=== PATIENT | female | born 1955 | race Caucasian/White ===

== ENCOUNTER 2018-04-27 16:55 | Inpatient (IN) | payer OTHER ==
--- NOTE | 2018-04-27 17:21 | PDOC ---
Rapid Medical Evaluation Time Seen by Provider: 04/27/18 17:19 Medical Evaluation: Allergies Allergy/AdvReac Type Severity Reaction Status Date / Time Penicillins Allergy Verified 10/12/14 11:33 04/27/18 17:21 62 year old female with asthma, hypertension, NIDDM, gastritis, hypercholesterolemia, and septic arthritis x 2 with 4 days of non-traumatic right knee swelling and pain with chills and low-grade fevers. Right knee edematous, tender, mildly erythematous with limited ROM. Plan: -Sepsis labs and cultures -To Main ED for further evaluation Discharge Disposition - Diagnosis Knee pain, right Qualifiers: Chronicity: acute Qualified Code(s): M25.561 - Pain in right knee Fever Qualifiers: Fever type: unspecified Qualified Code(s): R50.9 - Fever, unspecified - Referrals - Patient Instructions - Post Discharge Activity
[2018-04-27] MEDS ORDERED: LIDOCAINE HCL 1%, 10 MG/ML (50 mL VIAL) SQ ONE (18:25)
--- NOTE | 2018-04-27 18:25 | PDOC ---
History of Present Illness - General Chief Complaint: Edema Stated Complaint: RT KNEE SWELLING Time Seen by Provider: 04/27/18 17:19 History Source: Patient, Care Provider Exam Limitations: No Limitations - History of Present Illness Initial Comments: This is a 62 YOF with h/o NIDDM and reported prior diagnosis of septic arthritis of the right knee (twice previously), who p/w right medial knee pain, swelling, warmth, and redness for the past 2-3 days associated with subjective fever and chills. Provider Gonsalo from her PCP's office instructed her to come into the ED and called ahead to provide information. The patient denies any lesions or injuries to the right knee or leg, and denies overusing the knee lately. She additionally denies any known exposure to new soaps, detergents, lotions, etc. She has been able to walk on the leg and is able to bend it partially at the knee, but both actions cause her pain to worsen to a maximum 10 /10. She denies streaking erythema, drainage, foot swelling, grinding/crunching sensation of the joint, chest pain, palpitations, shortness of breath, or other symptoms. Past History - Past Medical History Allergies/Adverse Reactions: Allergies Allergy/AdvReac Type Severity Reaction Status Date / Time Penicillins Allergy Verified 04/27/18 17:22 Home Medications: Ambulatory Orders Zolpidem Tartrate [Ambien] 10 mg PO HS PRN #0 tablet 04/02/13 Amlodipine Besylate [Norvasc -] 10 mg PO DAILY 04/19/14 Losartan Potassium 25 mg PO DAILY 04/19/14 Asthma: Yes COPD: No Diabetes: Yes GI Disorders: Yes (ULCER) HTN: Yes Hypercholesterolemia: Yes - Surgical History Appendectomy: Yes - Immunization History Immunization Up to Date: Yes - Suicide/Smoking/Psychosocial Hx Smoking Status: No Smoking History: Never smoked Have you smoked in the past 12 months: No Number of Cigarettes Smoked Daily: 0 Hx Alcohol Use: No Drug/Substance Use Hx: Yes Substance Use Type: Alcohol Hx Substance Use Treatment: No Review of Systems - Review of Systems Able to Perform ROS?: Yes Constitutional: Yes: Chills, Fever (subjective). No: Unexplained wgt Loss HEENTM: No: Nose Congestion, Throat Pain Respiratory: No: Cough, Shortness of Breath Cardiac (ROS): No: Chest Pain, Palpitations ABD/GI: No: Constipated, Diarrhea, Nausea, Vomiting : No: Burning, Dysuria Musculoskeletal: Yes: Joint Pain, Joint Swelling. No: Back Pain, Neck Pain Integumentary: Yes: Erythema. No: Bruising Neurological: No: Headache, Numbness, Tingling, Weakness, Dizziness Endocrine: No: Unexplained Weight Gain, Unexplained Weight Loss *Physical Exam - Vital Signs Last Vital Signs Temp Pulse Resp BP Pulse Ox 98 F 80 19 150/85 96 04/27/18 17:22 04/27/18 17:22 04/27/18 17:22 04/27/18 17:22 04/27/18 17:22 - Physical Exam General Appearance: Yes: Nourished, Appropriately Dressed, Other (nontoxic and well appearing female who is Jamaican speaking, accompanied by her daughter, answering questions appropriately, appears comfortable at rest, sitting in Vertical reclining chair with legs elevated). No: Apparent Distress HEENT: positive: EOMI, BELL, Normal Voice, Hearing Grossly Normal. negative: Scleral Icterus (R), Scleral Icterus (L), Nasal Congestion Neck: positive: Trachea midline, Supple. negative: Tender, Rigid Respiratory/Chest: positive: Lungs Clear, Normal Breath Sounds. negative: Respiratory Distress, Crackles, Rhonchi, Stridor, Wheezing Cardiovascular: positive: Regular Rhythm, Regular Rate. negative: Murmur Gastrointestinal/Abdominal: positive: Normal Bowel Sounds, Soft. negative: Tender, Organomegaly, Pulsatile Mass, Guarding Musculoskeletal: positive: Normal Inspection. negative: Decreased Range of Motion, Vertebral Tenderness Extremity: positive: Normal Capillary Refill, Other (right medial knee soft tissue swelling, erythema, warmth, tenderness, small knee effusion, patient able to passively range right knee in flexion to about 75 degrees with pain, able to fully extend). negative: Cyanosis Integumentary: positive: Dry, Warm, Erythema. 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 Initial Vital Signs Temp Pulse Resp BP Pulse Ox 98 F 80 19 150/85 96 04/27/18 17:22 04/27/18 17:22 04/27/18 17:22 04/27/18 17:22 04/27/18 17:22 Exam: right medial knee soft tissue swelling, erythema, warmth, tenderness, small knee effusion. DDX IBNLT: effusion (e.g. 2/2 osteoarthritis, overuse), gout, pseudogout, prepatellar bursitis, septic arthritis, hemarthrosis, edema (e.g. from CHF exacerbation or PVD), gonorrhea, necrotizing soft tissue infection, DVT, superficial venous thrombosis, popliteal cyst (wwo rupture), etc. W/U ordered: CBCD CMP Coags Lactate BCx ESR CRP XR knee to r/o gas/effusion CXR EKG TX ordered: Vancomycin, IVF Spoke with Dr. Rothman prior to any results completing. Patient's care endorsed to Drs. Casey and Gianna at the end of my shift. *DC/Admit/Observation/Transfer Diagnosis at time of Disposition: Knee pain, right Qualifiers: Chronicity: acute Qualified Code(s): M25.561 - Pain in right knee Fever Qualifiers: Fever type: unspecified Qualified Code(s): R50.9 - Fever, unspecified - Referrals - Patient Instructions - Post Discharge Activity
[2018-04-27] MEDS ORDERED: LIDOCAINE HCL 1%, 10 MG/ML (20ML VIAL) ONE (18:28)
[2018-04-27] MEDS ORDERED: VANCOMYCIN 1,500 MG in DEXTROSE 5%-WATER - 250 ML IVPB ONE (19:02)
--- NOTE | 2018-04-27 19:07 | PDOC ---
Attending Attestation - HPI HPI: 04/27/18 19:08 The patient is a 62 year old female, with a significant past medical history of asthma, hypertension, NIDDM, gastritis, hypercholesterolemia, and septic arthritis x 2, who presents to the emergency department with non-traumatic right knee swelling, redness, and pain for approximately 4 days. The patient reports 4 days of worsening right knee swelling and warmth. She denies any trauma to skin around the knee or any surgeries to the area. She reports subjective fever and chills, but denies any headache, dizziness, or lightheadedness. She denies any chest pain, shortness of breath, diaphoresis, or palpitations. She denies any abdominal pain, nausea, or vomiting. She denies any recent travel or sick contacts. Allergies: Penicillins Past Surgical History: Appendectomy Social History: Non smoker. No ETOH or recreational drug use. - Physicial Exam PE: 04/27/18 19:09 GENERAL: Awake, alert, and fully oriented, in no acute distress HEAD: No signs of trauma EYES: PERRLA, EOMI, sclera anicteric, conjunctiva clear ENT: Auricles normal inspection, hearing grossly normal, nares patent. Moist mucosa NECK: Normal ROM, supple, no lymphadenopathy, JVD, or masses LUNGS: Breath sounds equal, clear to auscultation bilaterally. No wheezes, and no crackles HEART: Regular rate and rhythm, normal S1 and S2, no murmurs, rubs or gallops ABDOMEN: Soft, nontender, normoactive bowel sounds. No guarding, no rebound. No masses EXTREMITIES: Right medial knee with skin swelling, warmth, erythema; able to flex/ extend the knee to 90 degress; no laxity. Erythema localized to medial knee. Normal range of motion at remainder of extremities. No clubbing or cyanosis. No cords. DP/PT pulses 2+ and symmetric. Warm and well perfused. NEUROLOGICAL: Moves all extremities. Normal speech, normal gait SKIN: Warm, Dry, normal turgor, no rashes or lesions noted. - Medical Decision Making 04/27/18 19:10 Documentation prepared by Santino Pabon, acting as resident medical officer for Mary Menard MD. <Santino Pabon - Last Filed: 04/27/18 19:09> - Resident Resident Name: Mary Moody - ED Attending Attestation I have performed the following: I have examined & evaluated the patient, The case was reviewed & discussed with the resident, I agree w/resident's findings & plan, Exceptions are as noted - Physicial Exam PE: 04/27/18 19:03 awake alert lungs clear bilaterally heart rrr nomrg. abd soft nt nd. ext wwp. right knee with medial skin swelling, warmth, erythema. able to flex/ ext knee to 90. no laxity.. erythema localezed to medial knee. hip ankle soft nt nd. nuero awake alert oriented x 3. - Medical Decision Making 04/27/18 19:04 62 yo F with h/o DM prior septic arthritis here with right knee pain. swelling. differential septic arthritis vs. cellulitis/ bursitis. plan labs cbc lytes cultures, esr and crp. focused ED us performed right knee, overlying celllulitis changes medial knee with cobblestoning present. no visible fluid collection. right lateral knee exam witn very small effusion. impression: knee cellulitis, small joint effusion. decision not to perform arthrocentesis due to overlying cellulitis, concerns for introduction of infection into joint. plan iv abx, will consult orthopedics. <Mary Menard - Last Filed: 04/28/18 12:51>
[2018-04-27 19:28] LABS: BASO % 0.3 % (0-2.0); EOS % 3.8 % (0-4.5); HEMATOCRIT 36.5 % (32.4-45.2); HEMOGLOBIN 12.3 GM/dL (10.7-15.3); LYMPH % 36.8 % (8-40); MCH 29.7 pg (25.7-33.7); MCHC 33.7 g/dl (32.0-36.0); MEAN CELL VOLUME 87.9 fl (80-96); MEAN PLT VOLUME 8.5 fl (7.5-11.1); MONO % 7.7 % (3.8-10.2); NEUT % 51.4 % (42.8-82.8); PLATELET COUNT 312 K/MM3 (134-434); RBC 4.15 M/mm3 (3.60-5.2); RDW 13.2 % (11.6-15.6); WHITE BLOOD COUNT 6.4 K/mm3 (4.0-10.0)
[2018-04-27 19:39] LABS: URINE APPEARANCE CLEAR; URINE BILIRUBIN NEGATIVE (<2.0 mg/dL); URINE COLOR YELLOW; URINE GLUCOSE (UA) NEGATIVE (NEGATIVE); URINE KETONE NEGATIVE (NEGATIVE); URINE LEUK ESTERASE TRACE (NEGATIVE); URINE NITRITE NEGATIVE (NEGATIVE); URINE PROTEIN NEGATIVE (NEGATIVE); URINE UROBILINOGEN NEGATIVE mg/dL (0.2-1.0)
[2018-04-27] MEDS ORDERED: VANCOMYCIN 1,500 MG in DEXTROSE 5%-WATER - 500 ML IVPB ONE (19:46)
[2018-04-27 19:47] LABS: PROTHROMBIN TIME (PATIENT) 11.3 SEC (9.7-13.0)
[2018-04-27 19:50] LABS: ACTIVATED PTT 27.2 SECONDS (25.2-36.5)
[2018-04-27 19:58] LABS: EPI CELLS RARE /HPF (FEW); URINE MUCUS RARE
[2018-04-27 20:18] LABS: ALBUMIN 3.4 g/dl (3.4-5.0); ANION GAP 6 (8-16); BILIRUBIN,TOTAL 0.4 mg/dL (0.2-1.0); BLOOD UREA NITROGEN 14 mg/dL (7-18); CALCIUM 9.1 mg/dL (8.5-10.1); CHLORIDE 104 mmol/L (98-107); CO2 30 mmol/L (21-32); GLUCOSE,RANDOM 141 mg/dL (74-106); POTASSIUM 3.9 mmol/L (3.5-5.1); SODIUM 140 mmol/L (136-145); TOT PROT 6.7 g/dl (6.4-8.2)
[2018-04-27 21:06] LABS: ALK PHOS 100 U/L (45-117); SGOT/AST 21 U/L (15-37); SGPT/ALT 30 U/L (12-78)
--- NOTE | 2018-04-27 21:36 | PDOC ---
*Physical Exam - Vital Signs Last Vital Signs Temp Pulse Resp BP Pulse Ox 98 F 80 19 150/85 96 04/27/18 17:22 04/27/18 17:22 04/27/18 17:22 04/27/18 17:22 04/27/18 17:22 ED Treatment Course - LABORATORY CBC & Chemistry Diagram: 04/27/18 19:13 04/27/18 19:13 - ADDITIONAL ORDERS Additional order review: Laboratory Results 04/27/18 04/27/18 04/27/18 19:13 19:13 19:13 PT with INR INR PTT (Actin FS) Sodium 140 Potassium 3.9 Chloride 104 Carbon Dioxide 30 Anion Gap 6 L BUN 14 Creatinine 1.0 Creat Clearance w eGFR 55.82 Random Glucose 141 H Lactic Acid 1.2 Calcium 9.1 Total Bilirubin 0.4 D AST 21 ALT 30 Alkaline Phosphatase 100 C-Reactive Protein Total Protein 6.7 Albumin 3.4 Urine Color Yellow Urine Appearance Clear Urine pH 6.0 Ur Specific [place] 1.027 Urine Protein Negative Urine Glucose (UA) Negative Urine Ketones Negative Urine Blood Negative Urine Nitrite Negative Urine Bilirubin Negative Urine Urobilinogen Negative Ur Leukocyte Esterase Trace Urine WBC (Auto) 4 Urine RBC (Auto) 1 Ur Epithelial Cells Rare Urine Mucus Rare 04/27/18 04/27/18 19:13 19:08 PT with INR 11.30 INR 1.00 PTT (Actin FS) 27.2 Sodium Potassium Chloride Carbon Dioxide Anion Gap BUN Creatinine Creat Clearance w eGFR Random Glucose Lactic Acid Calcium Total Bilirubin AST ALT Alkaline Phosphatase C-Reactive Protein 3.0 H Total Protein Albumin Urine Color Urine Appearance Urine pH Ur Specific [place] Urine Protein Urine Glucose (UA) Urine Ketones Urine Blood Urine Nitrite Urine Bilirubin Urine Urobilinogen Ur Leukocyte Esterase Urine WBC (Auto) Urine RBC (Auto) Ur Epithelial Cells Urine Mucus 04/27/18 19:13 RBC 4.15 MCV 87.9 MCHC 33.7 RDW 13.2 MPV 8.5 Neutrophils % 51.4 Lymphocytes % 36.8 Monocytes % 7.7 Eosinophils % 3.8 Basophils % 0.3 - Medications Given in the ED: ED Medications Discontinued Medications Generic Name Dose Route Start Last Admin Trade Name Freq PRN Reason Stop Dose Admin Vancomycin HCl 1,500 mg/ 500 mls @ 250 mls/hr 04/27/18 19:46 04/27/18 21:08 Dextrose IVPB 04/27/18 21:01 250 mls/hr ONCE ONE Administration Protocol Lidocaine HCl 5 ml 04/27/18 18:25 04/27/18 21:18 Xylocaine 1% SQ 04/27/18 18:26 Not Given ONCE ONE Medical Decision Making - Medical Decision Making Patient signed out to me pending labs for likely septic right knee joint. Vancomycin was given prior to my arrival so arthrocentesis was deferred for ortho given high risk in the setting of two previous septic joints. Patient signed out to Venkatesh and consults placed for Di. 04/27/18 21:27 *DC/Admit/Observation/Transfer Diagnosis at time of Disposition: Knee pain, right Qualifiers: Chronicity: acute Qualified Code(s): M25.561 - Pain in right knee Fever Qualifiers: Fever type: unspecified Qualified Code(s): R50.9 - Fever, unspecified - Referrals - Patient Instructions - Post Discharge Activity
--- NOTE | 2018-04-27 21:59 | HP ---
Admitting History and Physical - Primary Care Physician PCP: Lois Riddle - Admission History of Present Illness: 62 YOF with h/o NIDDM and reported prior diagnosis of septic arthritis of the right knee (twice previously), who p/w right medial knee pain, swelling, warmth , and redness for the past 2-3 days associated with subjective fever and chills. Provider Gonsalo from her PCP's office instructed her to come into the ED and called ahead to provide information. The patient denies any lesions or injuries to the right knee or leg, and denies overusing the knee lately. She additionally denies any known exposure to new soaps, detergents, lotions, etc. She has been able to walk on the leg and is able to bend it partially at the knee, but both actions cause her pain to worsen to a maximum 10/10. She denies streaking erythema, drainage, foot swelling, grinding/crunching sensation of the joint, chest pain, palpitations, shortness of breath, or other symptoms. - Past Medical History Cardiovascular: Yes: HTN Endocrine: Yes: Diabetes Mellitus - Smoking History Smoking history: Never smoked Have you smoked in the past 12 months: No Aproximately how many cigarettes per day: 0 - Alcohol/Substance Use Hx Alcohol Use: No Home Medications - Allergies Allergies/Adverse Reactions: Allergies Allergy/AdvReac Type Severity Reaction Status Date / Time Penicillins Allergy Verified 04/27/18 17:22 - Home Medications Home Medications: Ambulatory Orders Zolpidem Tartrate [Ambien] 10 mg PO HS PRN #0 tablet 04/02/13 Amlodipine Besylate [Norvasc -] 10 mg PO DAILY 04/19/14 Losartan Potassium 25 mg PO DAILY 04/19/14 Physical Examination Vital Signs: Vital Signs Temperature 98 F 04/27/18 17:22 Pulse Rate 80 04/27/18 17:22 Respiratory Rate 19 04/27/18 17:22 Blood Pressure 150/85 04/27/18 17:22 O2 Sat by Pulse Oximetry (%) 96 04/27/18 17:22 Constitutional: Yes: No Distress HENT: Yes: Atraumatic Neck: Yes: Supple Cardiovascular: Yes: Regular Rate and Rhythm Respiratory: Yes: CTA Bilaterally Gastrointestinal: Yes: Normal Bowel Sounds Extremities: Yes: Other (R knee red warm and swollen) Peripheral Pulses WNL: Yes Neurological: Yes: Alert, Oriented Labs: CBC, BMP 04/27/18 19:13 04/27/18 19:13 Problem List - Problems (1) Right knee skin infection Assessment/Plan: iv abx id and ortho consult prn pain meds Code(s): L08.9 - LOCAL INFECTION OF THE SKIN AND SUBCUTANEOUS TISSUE, UNSP (2) HTN (hypertension) Assessment/Plan: onmeds stable Code(s): I10 - ESSENTIAL (PRIMARY) HYPERTENSION (3) Diabetes Assessment/Plan: not on any meds Code(s): E11.9 - TYPE 2 DIABETES MELLITUS WITHOUT COMPLICATIONS Assessment/Plan Laboratory Tests 04/27/18 04/27/18 04/27/18 19:08 19:13 19:13 WBC 6.4 RBC 4.15 Hgb 12.3 Hct 36.5 MCV 87.9 MCH 29.7 MCHC 33.7 RDW 13.2 Plt Count 312 D MPV 8.5 Absolute Neuts (auto) 3.3 Neutrophils % 51.4 Lymphocytes % 36.8 Monocytes % 7.7 Eosinophils % 3.8 Basophils % 0.3 Nucleated RBC % 0 PT with INR 11.30 INR 1.00 PTT (Actin FS) 27.2 Sodium Potassium Chloride Carbon Dioxide Anion Gap BUN Creatinine Creat Clearance w eGFR Random Glucose Lactic Acid Calcium Total Bilirubin AST ALT Alkaline Phosphatase C-Reactive Protein 3.0 H Total Protein Albumin Urine Color Urine Appearance Urine pH Ur Specific [place] Urine Protein Urine Glucose (UA) Urine Ketones Urine Blood Urine Nitrite Urine Bilirubin Urine Urobilinogen Ur Leukocyte Esterase Urine WBC (Auto) Urine RBC (Auto) Ur Epithelial Cells Urine Mucus 04/27/18 04/27/18 04/27/18 19:13 19:13 19:13 WBC RBC Hgb Hct MCV MCH MCHC RDW Plt Count MPV Absolute Neuts (auto) Neutrophils % Lymphocytes % Monocytes % Eosinophils % Basophils % Nucleated RBC % PT with INR INR PTT (Actin FS) Sodium 140 Potassium 3.9 Chloride 104 Carbon Dioxide 30 Anion Gap 6 L BUN 14 Creatinine 1.0 Creat Clearance w eGFR 55.82 Random Glucose 141 H Lactic Acid 1.2 Calcium 9.1 Total Bilirubin 0.4 D AST 21 ALT 30 Alkaline Phosphatase 100 C-Reactive Protein Total Protein 6.7 Albumin 3.4 Urine Color Yellow Urine Appearance Clear Urine pH 6.0 Ur Specific [place] 1.027 Urine Protein Negative Urine Glucose (UA) Negative Urine Ketones Negative Urine Blood Negative Urine Nitrite Negative Urine Bilirubin Negative Urine Urobilinogen Negative Ur Leukocyte Esterase Trace Urine WBC (Auto) 4 Urine RBC (Auto) 1 Ur Epithelial Cells Rare Urine Mucus Rare Active Medications Generic Name Dose Route Start Last Admin Trade Name Freq PRN Reason Stop Dose Admin Acetaminophen 650 mg 04/27/18 21:54 Tylenol - PO Q6H PRN FEVER Amlodipine Besylate 10 mg 04/28/18 10:00 Norvasc - PO DAILY [facility] Heparin Sodium (Porcine) 5,000 unit 04/27/18 22:00 Heparin - SQ BID [facility] Losartan Potassium 25 mg 04/28/18 10:00 Cozaar - PO DAILY [facility] Non-Formulary Medication 10 mg 04/27/18 21:54 Zolpidem Tartrate [Ambien] PO HS PRN INSOMNIA
[2018-04-27] MEDS ORDERED: HEPARIN NA (PORCINE) 5,000 UNITS/ML 1ML VIAL ONE (23:40)
[2018-04-27] MEDS: HEPARIN NA (PORCINE) 5,000 UNITS/ML 1ML VIAL SQ SCH (23:45)
[2018-04-28 01:19] VITALS: BMI 29.6
[2018-04-28] MEDS: amLODIPine BESYLATE 10 MG TABLET (FP) PO SCH (09:47)
[2018-04-28] MEDS: HEPARIN NA (PORCINE) 5,000 UNITS/ML 1ML VIAL SQ SCH ×2 (09:47→21:00)
[2018-04-28] MEDS: LOSARTAN POTASSIUM 25 MG TABLET PO SCH (09:47)
--- NOTE | 2018-04-28 11:03 | CON.ORTH ---
Consult Reason for Consultation:: right knee pain/swelling - Past Medical History Cardio/Vascular: Yes: HTN Endocrine: Yes: Diabetes Mellitus - Alcohol/Substance Use Hx Alcohol Use: No - Smoking History Smoking history: Never smoked Have you smoked in the past 12 months: No Aproximately how many cigarettes per day: 0 Home Medications - Allergies Allergies/Adverse Reactions: Allergies Allergy/AdvReac Type Severity Reaction Status Date / Time Penicillins Allergy Verified 04/27/18 17:22 - Home Medications Home Medications: Ambulatory Orders Zolpidem Tartrate [Ambien] 10 mg PO HS PRN #0 tablet 04/02/13 Amlodipine Besylate [Norvasc -] 10 mg PO DAILY 04/19/14 Losartan Potassium 25 mg PO DAILY 04/19/14 Physical Exam for Ortho Vital Signs: Vital Signs Temperature 98.6 F 04/28/18 06:22 Pulse Rate 68 04/28/18 06:22 Respiratory Rate 20 04/28/18 06:22 Blood Pressure 112/59 04/28/18 06:22 O2 Sat by Pulse Oximetry (%) 97 04/28/18 00:57 Labs: CBC, BMP 04/27/18 19:13 04/27/18 19:13 INR, PTT INR 1.00 (0.82-1.09) 04/27/18 19:13 - Lower Extremity Knee: Yes: Right, Pain, Swelling, Tenderness, Other (Minimal erythema, + extraarticular mass/fluid on the medial aspect of the knee, + ttp, ROM 0-110, calf soft, nt, nvi) Imaging - Results X-ray: Report Reviewed, Image Reviewed Assessment/Plan 62 YOF with h/o NIDDM and reported prior diagnosis of septic arthritis of the right knee (twice previously), who p/w right medial knee pain, swelling, warmth , and redness for the past 2-3 days associated with subjective fever and chills. Provider Gonsalo from her PCP's office instructed her to come into the ED and called ahead to provide information. The patient denies any lesions or injuries to the right knee or leg, and denies overusing the knee lately. a/p- Right knee swelling/mass- no evidence of septic joint Will order MRI to evaluate mass whether its fluid/soft tissue If fluid on MRI, then can aspirate WBAT will f/u after MRI d/w Dr. Rothman
--- NOTE | 2018-04-28 14:38 | CON.ID ---
Consult Consult Specialty:: infectious diseases Reason for Consultation:: swelling and cellulitits of the rt knee joint - History of Present Illness Chief Complaint: pain and swelling in the rt knee joint History of Present Illness: 62 YOF with h/o NIDDM and reported prior diagnosis of septic arthritis of the right knee (twice previously), who p/w right medial knee pain, swelling, warmth , and redness for the past 4 days associated with subjective fever and chills. since 4 days the leg has been swelling and the patient came to the hospital because of pain.Denies any trauma .patient able to bear weight on the joint denies any other issues and otherwise comfortable - History Source History Provided By: Patient, Medical Record Limitations to Obtaining History: Language Barrier - Past Medical History Cardio/Vascular: Yes: HTN Endocrine: Yes: Diabetes Mellitus - Alcohol/Substance Use Hx Alcohol Use: No - Smoking History Smoking history: Never smoked Have you smoked in the past 12 months: No Aproximately how many cigarettes per day: 0 Home Medications - Allergies Allergies/Adverse Reactions: Allergies Allergy/AdvReac Type Severity Reaction Status Date / Time Penicillins Allergy Verified 04/27/18 17:22 - Home Medications Home Medications: Ambulatory Orders Zolpidem Tartrate [Ambien] 10 mg PO HS PRN #0 tablet 04/02/13 Amlodipine Besylate [Norvasc -] 10 mg PO DAILY 04/19/14 Losartan Potassium 25 mg PO DAILY 04/19/14 Review of Systems - Review of Systems Constitutional: reports: No Symptoms Eyes: reports: No Symptoms HENT: reports: No Symptoms Neck: reports: No Symptoms Cardiovascular: reports: No Symptoms Respiratory: reports: No Symptoms Gastrointestinal: reports: No Symptoms Genitourinary: reports: No Symptoms Musculoskeletal: reports: Joint Pain, Other Integumentary: reports: Change in Color, Erythema, Other Neurological: reports: No Symptoms Endocrine: reports: No Symptoms Hematology/Lymphatic: reports: No Symptoms Psychiatric: reports: No Symptoms Physical Exam Vital Signs: Vital Signs Temperature 98.6 F 04/28/18 13:20 Pulse Rate 61 04/28/18 13:20 Respiratory Rate 20 04/28/18 13:20 Blood Pressure 133/56 04/28/18 13:20 O2 Sat by Pulse Oximetry (%) 96 04/28/18 09:00 Constitutional: Yes: Well Nourished, Calm, Mild Distress Eyes: Yes: Conjunctiva Clear HENT: Yes: Atraumatic, Normocephalic Neck: Yes: Supple, Trachea Midline Cardiovascular: Yes: Regular Rate and Rhythm Respiratory: Yes: Regular, CTA Bilaterally Gastrointestinal: Yes: Normal Bowel Sounds, Soft Musculoskeletal: Yes: WNL Extremities: Yes: Other (rt knee joint swelling with erythema and cellulitits) Integumentary: Yes: Erythema, Other Neurological: Yes: Alert, Oriented Psychiatric: Yes: Alert, Oriented Labs: CBC, BMP 04/27/18 19:13 04/27/18 19:13 Assessment/Plan Problem List - Problems (1) Right knee skin infection Code(s): L08.9 - LOCAL INFECTION OF THE SKIN AND SUBCUTANEOUS TISSUE, UNSP (2) HTN (hypertension) Code(s): I10 - ESSENTIAL (PRIMARY) HYPERTENSION (3) Diabetes Code(s): E11.9 - TYPE 2 DIABETES MELLITUS WITHOUT COMPLICATIONS 4 rt knee swelling and cellulitits 5 r/o bursitis plan will continue abx mri of the joint elevation of the leg rest as per ortho
--- NOTE | 2018-04-28 15:05 | EKG ---
Test Reason : Blood Pressure : / mmHG Vent. Rate : 071 BPM Atrial Rate : 071 BPM P-R Int : 158 ms QRS Dur : 088 ms QT Int : 386 ms P-R-T Axes : 041 057 060 degrees QTc Int : 419 ms NORMAL SINUS RHYTHM NONSPECIFIC ST AND T WAVE ABNORMALITY ABNORMAL ECG WHEN COMPARED WITH ECG OF 12-OCT-2014 13:11, NO SIGNIFICANT CHANGE WAS FOUND Confirmed by MD Ben, Calos ([id number]) on 04/28/2018 3:04:48 PM Referred By: Confirmed By:Calos Contreras MD
--- NOTE | 2018-04-28 18:12 | PN ---
Progress Note, Physician - Current Medication List Current Medications: Active Medications Acetaminophen (Tylenol -) 650 mg PO Q6H PRN PRN Reason: FEVER Amlodipine Besylate (Norvasc -) 10 mg PO DAILY [facility] Last Admin: 04/28/18 09:47 Dose: 10 mg Heparin Sodium (Porcine) (Heparin -) 5,000 unit SQ BID [facility] Last Admin: 04/28/18 09:47 Dose: 5,000 unit Losartan Potassium (Cozaar -) 25 mg PO DAILY [facility] Last Admin: 04/28/18 09:47 Dose: 25 mg Zolpidem Tartrate (Ambien -) 10 mg PO HS PRN PRN Reason: INSOMNIA - Objective Vital Signs: Vital Signs Temperature 98 F 04/28/18 17:15 Pulse Rate 77 04/28/18 17:15 Respiratory Rate 20 04/28/18 17:15 Blood Pressure 130/65 04/28/18 17:15 O2 Sat by Pulse Oximetry (%) 96 04/28/18 09:00 Constitutional: Yes: No Distress HENT: Yes: Atraumatic Neck: Yes: Supple Cardiovascular: Yes: Regular Rate and Rhythm Respiratory: Yes: CTA Bilaterally Gastrointestinal: Yes: Normal Bowel Sounds Extremities: Yes: Other (R knee still swollen and warm) Edema: RLE: 1+ Neurological: Yes: Alert, Oriented Labs: CBC, BMP 04/27/18 19:13 04/27/18 19:13 INR, PTT INR 1.00 (0.82-1.09) 04/27/18 19:13 Problem List - Problems (1) Right knee skin infection Assessment/Plan: iv abx id and ortho consult..noted for mri prn pain meds Code(s): L08.9 - LOCAL INFECTION OF THE SKIN AND SUBCUTANEOUS TISSUE, UNSP (2) HTN (hypertension) Assessment/Plan: onmeds stable Code(s): I10 - ESSENTIAL (PRIMARY) HYPERTENSION (3) Diabetes Code(s): E11.9 - TYPE 2 DIABETES MELLITUS WITHOUT COMPLICATIONS
[2018-04-28] MEDS: VANCOMYCIN 1,250 MG in DEXTROSE 5%-WATER - 250 ML IVPB SCH (20:35)
[2018-04-28] MEDS: ZOLPIDEM TARTRATE 5 MG TABLET PO PRN (22:11)
[2018-04-28] MEDS: ACETAMINOPHEN 325 MG TABLET (FP) PO PRN (22:11)
--- NOTE | 2018-04-29 10:00 | PN ---
Progress Note (short form) - Note Progress Note: AVSS EXCELLENT AROM RIGHT KNEE NO SWELLING, REDNESS OR TENDERNESS SWELLING ON MEDIAL ASPECT OF KNEE DECREASED MRI TO MY EVALUATION SHOWS NO COLLECTION OR MASS PLAN: AWAITING OFFICIAL READ OF MRI THEN DC TO HOME, F/U PUT PATIENT
[2018-04-29] MEDS: LOSARTAN POTASSIUM 25 MG TABLET PO SCH (10:08)
[2018-04-29] MEDS: HEPARIN NA (PORCINE) 5,000 UNITS/ML 1ML VIAL SQ SCH ×2 (10:08→21:50)
[2018-04-29] MEDS: amLODIPine BESYLATE 10 MG TABLET (FP) PO SCH (10:08)
--- NOTE | 2018-04-29 12:11 | PN ---
Progress Note, Physician - Current Medication List Current Medications: Active Medications Acetaminophen (Tylenol -) 650 mg PO Q6H PRN PRN Reason: FEVER Last Admin: 04/28/18 22:11 Dose: 650 mg Amlodipine Besylate (Norvasc -) 10 mg PO DAILY [facility] OF [facility] Last Admin: 04/29/18 10:08 Dose: 10 mg Heparin Sodium (Porcine) (Heparin -) 5,000 unit SQ BID [facility] Last Admin: 04/29/18 10:08 Dose: 5,000 unit Vancomycin HCl 1,250 mg/ (Dextrose) 250 mls @ 166.667 mls/hr IVPB Q24H ON LICENSE OF [facility] Last Admin: 04/28/18 20:35 Dose: 166.667 mls/hr Levofloxacin (Levaquin 750 Mg Premixed Ivpb -) 750 mg in 150 mls @ 100 mls/hr IVPB DAILY [facility] Last Admin: 04/29/18 10:40 Dose: 100 mls/hr Losartan Potassium (Cozaar -) 25 mg PO DAILY [facility] Last Admin: 04/29/18 10:08 Dose: 25 mg Zolpidem Tartrate (Ambien -) 10 mg PO HS PRN PRN Reason: INSOMNIA Last Admin: 04/28/18 22:11 Dose: 10 mg - Objective Vital Signs: Vital Signs Temperature 97.7 F 04/29/18 07:13 Pulse Rate 70 04/29/18 07:13 Respiratory Rate 20 04/29/18 07:13 Blood Pressure 134/67 04/29/18 07:13 O2 Sat by Pulse Oximetry (%) 96 04/28/18 21:00 Constitutional: Yes: No Distress HENT: Yes: Atraumatic Neck: Yes: Supple Cardiovascular: Yes: Regular Rate and Rhythm Respiratory: Yes: CTA Bilaterally Gastrointestinal: Yes: Normal Bowel Sounds Extremities: Yes: Other (R knee warm and swollen) Neurological: Yes: Alert, Oriented Labs: CBC, BMP 04/27/18 19:13 04/27/18 19:13 INR, PTT INR 1.00 (0.82-1.09) 04/27/18 19:13 Problem List - Problems (1) Right knee skin infection Assessment/Plan: iv abx id and ortho consult..noted for mri prn pain meds Code(s): L08.9 - LOCAL INFECTION OF THE SKIN AND SUBCUTANEOUS TISSUE, UNSP (2) HTN (hypertension) Assessment/Plan: onmeds stable Code(s): I10 - ESSENTIAL (PRIMARY) HYPERTENSION (3) Diabetes Assessment/Plan: not on any meds Code(s): E11.9 - TYPE 2 DIABETES MELLITUS WITHOUT COMPLICATIONS
--- NOTE | 2018-04-29 12:38 | PN ---
Progress Note, Physician History of Present Illness: stable still with pain in the knee joint with swelling present - Current Medication List Current Medications: Active Medications Acetaminophen (Tylenol -) 650 mg PO Q6H PRN PRN Reason: FEVER Last Admin: 04/28/18 22:11 Dose: 650 mg Amlodipine Besylate (Norvasc -) 10 mg PO DAILY [facility] Last Admin: 04/29/18 10:08 Dose: 10 mg Heparin Sodium (Porcine) (Heparin -) 5,000 unit SQ BID [facility] Last Admin: 04/29/18 10:08 Dose: 5,000 unit Vancomycin HCl 1,250 mg/ (Dextrose) 250 mls @ 166.667 mls/hr IVPB Q24H [facility] Last Admin: 04/28/18 20:35 Dose: 166.667 mls/hr Levofloxacin (Levaquin 750 Mg Premixed Ivpb -) 750 mg in 150 mls @ 100 mls/hr IVPB DAILY [facility] Last Admin: 04/29/18 10:40 Dose: 100 mls/hr Losartan Potassium (Cozaar -) 25 mg PO DAILY [facility] Last Admin: 04/29/18 10:08 Dose: 25 mg Zolpidem Tartrate (Ambien -) 10 mg PO HS PRN PRN Reason: INSOMNIA Last Admin: 04/28/18 22:11 Dose: 10 mg - Objective Vital Signs: Vital Signs Temperature 97.7 F 04/29/18 07:13 Pulse Rate 70 04/29/18 07:13 Respiratory Rate 20 04/29/18 07:13 Blood Pressure 134/67 04/29/18 07:13 O2 Sat by Pulse Oximetry (%) 96 04/28/18 21:00 Constitutional: Yes: Calm, Mild Distress Cardiovascular: Yes: Regular Rate and Rhythm Respiratory: Yes: Regular, CTA Bilaterally Gastrointestinal: Yes: Normal Bowel Sounds, Soft Musculoskeletal: Yes: WNL Extremities: Yes: Erythema (knee jpint), Other Integumentary: Yes: Erythema Neurological: Yes: Alert, Oriented Psychiatric: Yes: Alert, Oriented Labs: CBC, BMP 04/27/18 19:13 04/27/18 19:13 INR, PTT INR 1.00 (0.82-1.09) 04/27/18 19:13 - ....Imaging MRI: Report Reviewed, Image Reviewed Assessment/Plan Problem List - Problems (1) Right knee skin infection Code(s): L08.9 - LOCAL INFECTION OF THE SKIN AND SUBCUTANEOUS TISSUE, UNSP (2) HTN (hypertension) Code(s): I10 - ESSENTIAL (PRIMARY) HYPERTENSION (3) Diabetes Code(s): E11.9 - TYPE 2 DIABETES MELLITUS WITHOUT COMPLICATIONS 4 rt knee swelling and cellulitits 5 r/o bursitis plan will continue abx mri results and imaging noted will need abx for couple of days rest continue current mgmt
[2018-04-29] MEDS: VANCOMYCIN 1,250 MG in DEXTROSE 5%-WATER - 250 ML IVPB SCH (20:05)
[2018-04-29] MEDS: ACETAMINOPHEN 325 MG TABLET (FP) PO PRN (21:50)
[2018-04-29] MEDS: ZOLPIDEM TARTRATE 5 MG TABLET PO PRN (21:50)
[2018-04-30] MEDS: HEPARIN NA (PORCINE) 5,000 UNITS/ML 1ML VIAL SQ SCH ×2 (09:54→22:42)
[2018-04-30] MEDS: LOSARTAN POTASSIUM 25 MG TABLET PO SCH (09:55)
[2018-04-30] MEDS: amLODIPine BESYLATE 10 MG TABLET (FP) PO SCH (09:55)
--- NOTE | 2018-04-30 11:25 | PN ---
Progress Note (short form) - Note Progress Note: Ortho Pt seen and examined- improved Selected Entries 04/30/18 06:56 Temperature 98.1 F Pulse Rate 67 Respiratory 20 Rate Blood Pressure 117/64 Laboratory Tests 04/27/18 19:13 WBC 6.4 Hgb 12.3 Hct 36.5 Plt Count 312 D decr swelling, decr pain, incr rom nvi a/p abx as per ID PT orthopedically stable ok to d/c from ortho pov d/w Dr. Rothman
--- NOTE | 2018-04-30 11:58 | PN ---
Progress Note, Physician History of Present Illness: patient still with knee pain and swelling ortho note noted erythema improving - Current Medication List Current Medications: Active Medications Acetaminophen (Tylenol -) 650 mg PO Q6H PRN PRN Reason: FEVER Last Admin: 04/29/18 21:50 Dose: 650 mg Amlodipine Besylate (Norvasc -) 10 mg PO DAILY [facility] Last Admin: 04/30/18 09:55 Dose: 10 mg Heparin Sodium (Porcine) (Heparin -) 5,000 unit SQ BID [facility] Last Admin: 04/30/18 09:54 Dose: 5,000 unit Vancomycin HCl 1,250 mg/ (Dextrose) 250 mls @ 166.667 mls/hr IVPB Q24H [facility] Last Admin: 04/29/18 20:05 Dose: 166.667 mls/hr Levofloxacin (Levaquin 750 Mg Premixed Ivpb -) 750 mg in 150 mls @ 100 mls/hr IVPB DAILY [facility] Last Admin: 04/30/18 09:55 Dose: 100 mls/hr Losartan Potassium (Cozaar -) 25 mg PO DAILY [facility] Last Admin: 04/30/18 09:55 Dose: 25 mg Zolpidem Tartrate (Ambien -) 10 mg PO HS PRN PRN Reason: INSOMNIA Last Admin: 04/29/18 21:50 Dose: 10 mg - Objective Vital Signs: Vital Signs Temperature 98.1 F 04/30/18 06:56 Pulse Rate 67 04/30/18 06:56 Respiratory Rate 20 04/30/18 06:56 Blood Pressure 117/64 04/30/18 06:56 O2 Sat by Pulse Oximetry (%) 95 04/29/18 21:00 Constitutional: Yes: No Distress, Calm Neck: Yes: Supple, Trachea Midline Cardiovascular: Yes: Regular Rate and Rhythm Respiratory: Yes: Regular, CTA Bilaterally Gastrointestinal: Yes: Normal Bowel Sounds, Soft Musculoskeletal: Yes: WNL Extremities: Yes: Other (swelling of the knee joint better) Neurological: Yes: Alert, Oriented Psychiatric: Yes: Alert, Oriented Labs: CBC, BMP 04/27/18 19:13 04/27/18 19:13 INR, PTT INR 1.00 (0.82-1.09) 04/27/18 19:13 Assessment/Plan Problem List - Problems (1) Right knee skin infection Code(s): L08.9 - LOCAL INFECTION OF THE SKIN AND SUBCUTANEOUS TISSUE, UNSP (2) HTN (hypertension) Code(s): I10 - ESSENTIAL (PRIMARY) HYPERTENSION (3) Diabetes Code(s): E11.9 - TYPE 2 DIABETES MELLITUS WITHOUT COMPLICATIONS 4 rt knee swelling and cellulitits 5 r/o bursitis plan will change to oral abx as line has infiltrated will check crp tomorrow if improving patient can be discharged on oral abx after the crp results come in
[2018-04-30] MEDS ORDERED: levoFLOXacin 750 MG TABLET PO SCH (12:00)
--- NOTE | 2018-04-30 18:39 | PN ---
Progress Note, Physician History of Present Illness: feeling good - Current Medication List Current Medications: Active Medications Acetaminophen (Tylenol -) 650 mg PO Q6H PRN PRN Reason: FEVER Last Admin: 04/29/18 21:50 Dose: 650 mg Amlodipine Besylate (Norvasc -) 10 mg PO DAILY [facility] Last Admin: 04/30/18 09:55 Dose: 10 mg Heparin Sodium (Porcine) (Heparin -) 5,000 unit SQ BID [facility] Last Admin: 04/30/18 09:54 Dose: 5,000 unit Levofloxacin (Levaquin) 750 mg PO DAILY@0600 [facility] Losartan Potassium (Cozaar -) 25 mg PO DAILY [facility] Last Admin: 04/30/18 09:55 Dose: 25 mg Zolpidem Tartrate (Ambien -) 10 mg PO HS PRN PRN Reason: INSOMNIA Last Admin: 04/29/18 21:50 Dose: 10 mg - Objective Vital Signs: Vital Signs Temperature 98.9 F 04/30/18 17:18 Pulse Rate 78 04/30/18 17:18 Respiratory Rate 20 04/30/18 17:18 Blood Pressure 127/73 04/30/18 17:18 O2 Sat by Pulse Oximetry (%) 95 04/29/18 21:00 Constitutional: Yes: No Distress HENT: Yes: Atraumatic Neck: Yes: Supple Cardiovascular: Yes: Regular Rate and Rhythm Respiratory: Yes: CTA Bilaterally Gastrointestinal: Yes: Normal Bowel Sounds Extremities: Yes: Other (R knee swelling and redness much improved) Neurological: Yes: Alert, Oriented Labs: CBC, BMP 04/27/18 19:13 04/27/18 19:13 INR, PTT INR 1.00 (0.82-1.09) 04/27/18 19:13 Problem List - Problems (1) Right knee skin infection Assessment/Plan: on po abx now will check labs dc in am if stable Code(s): L08.9 - LOCAL INFECTION OF THE SKIN AND SUBCUTANEOUS TISSUE, UNSP (2) HTN (hypertension) Assessment/Plan: onmeds stable Code(s): I10 - ESSENTIAL (PRIMARY) HYPERTENSION (3) Diabetes Assessment/Plan: not on any meds Code(s): E11.9 - TYPE 2 DIABETES MELLITUS WITHOUT COMPLICATIONS
[2018-04-30 19:34] LABS: BASO % 0.5 % (0-2.0); EOS % 3.2 % (0-4.5); HEMATOCRIT 39.5 % (32.4-45.2); HEMOGLOBIN 13.3 GM/dL (10.7-15.3); LYMPH % 40.5 % (8-40); MCH 29.7 pg (25.7-33.7); MCHC 33.7 g/dl (32.0-36.0); MEAN CELL VOLUME 88.1 fl (80-96); MEAN PLT VOLUME 8.3 fl (7.5-11.1); MONO % 6.5 % (3.8-10.2); NEUT % 49.3 % (42.8-82.8); PLATELET COUNT 337 K/MM3 (134-434); RBC 4.48 M/mm3 (3.60-5.2); RDW 12.7 % (11.6-15.6); WHITE BLOOD COUNT 6.1 K/mm3 (4.0-10.0)
[2018-04-30 20:08] LABS: ALBUMIN 3.6 g/dl (3.4-5.0); ALK PHOS 116 U/L (45-117); ANION GAP 6 (8-16); BILIRUBIN,TOTAL 0.3 mg/dL (0.2-1.0); BLOOD UREA NITROGEN 9 mg/dL (7-18); CALCIUM 8.9 mg/dL (8.5-10.1); CHLORIDE 106 mmol/L (98-107); CO2 28 mmol/L (21-32); CREATININE 1.1 mg/dL (0.55-1.02); GLUCOSE,RANDOM 165 mg/dL (74-106); POTASSIUM 4.3 mmol/L (3.5-5.1); SGOT/AST 27 U/L (15-37); SGPT/ALT 33 U/L (12-78); SODIUM 140 mmol/L (136-145); TOT PROT 7.3 g/dl (6.4-8.2)
[2018-04-30] MEDS: ACETAMINOPHEN 325 MG TABLET (FP) PO PRN (22:41)
[2018-04-30] MEDS: ZOLPIDEM TARTRATE 5 MG TABLET PO PRN (22:42)
[2018-05-01] MEDS: HEPARIN NA (PORCINE) 5,000 UNITS/ML 1ML VIAL SQ SCH (09:37)
[2018-05-01] MEDS: amLODIPine BESYLATE 10 MG TABLET (FP) PO SCH (09:37)
[2018-05-01] MEDS: LOSARTAN POTASSIUM 25 MG TABLET PO SCH (09:37)
--- NOTE | 2018-05-01 10:18 | PN ---
Progress Note (short form) - Note Progress Note: Ortho Pt seen and examined- improved decr swelling, decr pain, incr rom nvi a/p abx as per ID PT orthopedically stable ok to d/c from ortho pov d/w Dr. Rothman
--- NOTE | 2018-05-01 10:19 | PN ---
Progress Note (short form) - Note Progress Note: Ortho Pt seen and examined- improved Selected Entries 05/01/18 06:58 Temperature 97.6 F Pulse Rate 63 Respiratory 18 Rate Blood Pressure 114/67 Laboratory Tests 04/30/18 19:15 WBC 6.1 Hgb 13.3 Hct 39.5 Plt Count 337 decr swelling, decr pain, incr rom nvi a/p abx as per ID PT orthopedically stable ok to d/c from ortho pov d/w Dr. Rothman
[2018-05-01 12:33] VITALS: BP 136/68; PULSE 77; TEMP 98.4
--- NOTE | 2018-05-01 13:00 | PN ---
Progress Note, Physician History of Present Illness: patient stable decreased pain decreased swelling more mobility - Current Medication List Current Medications: Active Medications Acetaminophen (Tylenol -) 650 mg PO Q6H PRN PRN Reason: FEVER Last Admin: 04/30/18 22:41 Dose: 650 mg Amlodipine Besylate (Norvasc -) 10 mg PO DAILY [facility] Last Admin: 05/01/18 09:37 Dose: 10 mg Heparin Sodium (Porcine) (Heparin -) 5,000 unit SQ BID [facility] Last Admin: 05/01/18 09:37 Dose: 5,000 unit Levofloxacin (Levaquin -) 750 mg PO DAILY@0600 [facility] Last Admin: 05/01/18 05:55 Dose: 750 mg Losartan Potassium (Cozaar -) 25 mg PO DAILY [facility] Last Admin: 05/01/18 09:37 Dose: 25 mg Zolpidem Tartrate (Ambien -) 10 mg PO HS PRN PRN Reason: INSOMNIA Last Admin: 04/30/18 22:42 Dose: 10 mg - Objective Vital Signs: Vital Signs Temperature 98.4 F 05/01/18 09:00 Pulse Rate 77 05/01/18 09:00 Respiratory Rate 18 05/01/18 09:00 Blood Pressure 136/68 05/01/18 09:00 O2 Sat by Pulse Oximetry (%) 97 04/30/18 21:00 Constitutional: Yes: No Distress, Calm Cardiovascular: Yes: Regular Rate and Rhythm Respiratory: Yes: Regular, CTA Bilaterally Gastrointestinal: Yes: Normal Bowel Sounds, Soft Musculoskeletal: Yes: Other Extremities: Yes: Erythema (resolving of the knee joint) Integumentary: Yes: Erythema Neurological: Yes: Alert, Oriented Psychiatric: Yes: Alert, Oriented Labs: CBC, BMP 04/30/18 19:15 04/30/18 19:15 INR, PTT INR 1.00 (0.82-1.09) 04/27/18 19:13 Assessment/Plan Problem List - Problems (1) Right knee skin infection Code(s): L08.9 - LOCAL INFECTION OF THE SKIN AND SUBCUTANEOUS TISSUE, UNSP (2) HTN (hypertension) Code(s): I10 - ESSENTIAL (PRIMARY) HYPERTENSION (3) Diabetes Code(s): E11.9 - TYPE 2 DIABETES MELLITUS WITHOUT COMPLICATIONS 4 rt knee swelling and cellulitits 5 r/o bursitis plan continue oral abx await crp result rest continue current mgmt doing well
--- NOTE | 2018-05-01 13:48 | DS ---
Physical Examination Vital Signs: Vital Signs Temperature 98.4 F 05/01/18 09:00 Pulse Rate 77 05/01/18 09:00 Respiratory Rate 18 05/01/18 09:00 Blood Pressure 136/68 05/01/18 09:00 O2 Sat by Pulse Oximetry (%) 97 04/30/18 21:00 Constitutional: Yes: No Distress HENT: Yes: Atraumatic Neck: Yes: Supple Cardiovascular: Yes: Regular Rate and Rhythm Respiratory: Yes: CTA Bilaterally Gastrointestinal: Yes: Normal Bowel Sounds Extremities: Yes: Other (R knee much improved) Neurological: Yes: Alert, Oriented Labs: CBC, BMP 04/30/18 19:15 04/30/18 19:15 Discharge Summary Reason For Visit: RIGHT KNEE PAIN Current Active Problems Diabetes (Acute) Fever (Acute) HTN (hypertension) (Acute) Knee pain, right (Acute) Right knee skin infection (Acute) - Instructions Diet, Activity, Other Instructions: see your doctor next week levaquin for 10 days Disposition: HOME - Home Medications Comprehensive Discharge Medication List: Ambulatory Orders Zolpidem Tartrate [Ambien] 10 mg PO HS PRN #0 tablet 04/02/13 Amlodipine Besylate [Norvasc -] 10 mg PO DAILY 04/19/14 Losartan Potassium 25 mg PO DAILY 04/19/14 levoFLOXacin [Levaquin] 750 mg PO DAILY@0600 #10 tab 05/01/18 pa home
== END 2018-05-01 14:03 | disposition home or self-care (01) | DRG 383 ==
LOC: JER 16:55 → JERBED 21:45 → J8W 04-28 00:31
PROVIDERS: ADMIT Internal Medicine; ATTEND Internal Medicine
DX: L03.115 Cellulitis of right lower limb (principal); J45.909 Unspecified asthma, uncomplicated; E11.9 Type 2 diabetes mellitus without complications; E78.00 Pure hypercholesterolemia, unspecified; I10 Essential (primary) hypertension
CPT/HCPCS: 36415; 71045-TC-FY; 73562-TC-RT-FY; 73718-TC; 80053; 81003; 81015; 82962; 83605; 85025; 85610; 85651; 85730; 86140; 87040; 87077; 87086; 93005; 93010; 99283-25; J1644